=== PATIENT | male | born 1950 | race Caucasian/White ===

== ENCOUNTER → 2017-04-06 | Outpatient (CLI) | payer BC ==
[~2017-04-06] MED LIST: KETO10TA PO; LISI-461 PO; MOME50SP5; OXYC-57 PO
[2017-04-06 14:30] LABS: ALKALINE PHOSPHATASE 78 U/L (45-117); ALT/SGPT 30 U/L (12-78); AST/SGOT 24 U/L (15-37); BLOOD UREA NITROGEN 22 mg/dl (7-18); BUN/CREATININE RATIO 16.7 (10-20); CARBON DIOXIDE 29 mmol/L (21-32); CHLORIDE 106 mmol/L (98-107); CHOLESTEROL 149 mg/dl (0-200); GLUCOSE 152 mg/dl (70-99); POTASSIUM 4.4 mmol/L (3.5-5.1); SODIUM 142 mmol/L (136-145)
[2017-04-06 14:34] LABS: ALB/GLOB RATIO 1.1 (0.9-2); CHOLESTEROL/HDL RATIO 1.6; HDL CHOLESTEROL 91 mg/dl; LDL CHOLESTEROL CALCULATED 45 mg/dl; TRIGLYCERIDES 67 mg/dl (0-150); VERY LOW DENSITY LIPOPROT CALC 13 mg/dl
== END | disposition home or self-care (01) ==
LOC: C.LABPBG 10:05
PROVIDERS: ATTEND Internal Medicine Geriatric Medicine
DX: Z11.59 Encounter for screening for other viral diseases (principal); I10 Essential (primary) hypertension; E78.5 Hyperlipidemia, unspecified

== ENCOUNTER → 2017-07-22 | Outpatient (CLI) | payer BC ==
[2017-07-22 18:00] LABS: ALT/SGPT 24 U/L (12-78); BLOOD UREA NITROGEN 21 mg/dl (7-18); CALCIUM 9.6 mg/dl (8.5-10.1); CARBON DIOXIDE 30 mmol/L (21-32); CHLORIDE 105 mmol/L (98-107); CHOLESTEROL 148 mg/dl (0-200); GLUCOSE 87 mg/dl (70-99); POTASSIUM 4.3 mmol/L (3.5-5.1); SODIUM 140 mmol/L (136-145)
[2017-07-22 18:11] LABS: ALB/GLOB RATIO 0.9 (0.9-2); ALKALINE PHOSPHATASE 82 U/L (45-117); AST/SGOT 21 U/L (15-37); CHOLESTEROL/HDL RATIO 1.6; HDL CHOLESTEROL 94 mg/dl; LDL CHOLESTEROL CALCULATED 39 mg/dl; TRIGLYCERIDES 75 mg/dl (0-150); VERY LOW DENSITY LIPOPROT CALC 15 mg/dl
[2017-07-23 07:13] LABS: ESTIMATED AVERAGE GLUCOSE 126 mg/dl; HA1C FLAG Normal (Normal)
== END | disposition home or self-care (01) ==
LOC: C.LABPBG 11:33
PROVIDERS: ATTEND Internal Medicine Geriatric Medicine
DX: I10 Essential (primary) hypertension (principal); E78.5 Hyperlipidemia, unspecified; E11.9 Type 2 diabetes mellitus without complications

== ENCOUNTER → 2018-03-30 | Day surgery (SDC) | payer BC ==
[2018-03-22 13:03] VITALS: BMI 27.0
[~2018-03-30] VITALS: Ht 182.9 cm; Wt 90.9 kg
[~2018-03-30] MED LIST changes: +ATOR10TA82 PO; +CLR/5 PO; +FLUT50SP45 NAE; -KETO10TA PO; +LIDOCAINE HCL 2% 2 ML VIAL (20MG/ML) ONE; -LISI-461 PO; +LISI20TA3 PO; -MOME50SP5; +MULT-188 PO; -OXYC-57 PO; +PROPOFOL IV EMULSION 10 MG/ML 20 ML VIAL ONE; +SODIUM CHLORIDE 0.9% 500ML 500 ML IV ONE
[2018-03-30 07:55] VITALS: Ht 182.9 cm; Wt 90.9 kg
--- NOTE | 2018-03-30 08:52 | Endo History and Physical ---
History & Physical Date of Service: March 30, 2018. Chief Complaint: SCREENING Referring Physician: DR. SKYLA COELLO History of Present Illness 68 yo CM who presents for screening colonoscopy. Past Surgical History Hx Cardiac Surgery: No Hx Internal Defibrillator: No Hx Pacemaker: No Hx Abdominal Surgery: No Hx of Implantable Prosthesis: No Hx Post-Op Nausea and Vomiting: No Hx Cancer Surgery: Yes (TOTAL PROSTATECTOMY) Hx Thoracic Surgery: Yes (BRONCHOSCOPY) Hx Orthopedic: No Hx Urinary Tract Surgery: Yes (VASECTOMY) Family History None Social History Smoking Status: Never Smoker Hx Substance Use: No Hx Alcohol Use: Yes ("INFREQUENTLY") Allergies Coded Allergies: No Known Allergies (Verified , 03/30/18) Current Medications Reported Home Medications Medications Dose Route/Sig Max Daily Dose Days Date Category Allergy Nasal [place] 24 Ho (Fluticasone Propionate (Nasal)) 50 Mcg/Act Spr 1 [place] ALEXEY DAILY PRN 03/22/18 Reported Ocuvite (Multiple Vitamins W/ Minerals) 1 Tab Tab 1 Tab PO DAILY AT LUNCH 03/22/18 Reported Clarinex (Desloratadine) 5 Mg Tab 5 Mg PO DAILY PRN 03/22/18 Reported Lipitor (Atorvastatin Calcium) 10 Mg Tab 10 Mg PO DAILY AT LUNCH 03/22/18 Reported Prinivil (Lisinopril) 20 Mg Tab 20 Mg PO DAILY AT NOON 03/22/18 Reported Vital Signs Weight (Kilograms): 90.91 Height (Feet): 6 Height (Inches): 0 Date Time Temp Pulse Resp B/P (MAP) Pulse Ox O2 Delivery O2 Flow Rate FiO2 03/30/18 08:05 36.6 84 20 148/78 (101) 99 Room Air Physical Exam General Appearance: WD/WN, no apparent distress Respiratory/Chest: Auscultation: breath sounds normal Cardiovascular: Heart Auscultation: RRR Abdomen: Bowel Sounds: normal Inspection & Palpation: soft, non-distended, no tenderness, guarding & rebound Assessment and Plan Assessment: 68 yo CM who presents for screening colonoscopy. Plan: Proceed with colonoscopy.
--- NOTE | 2018-03-30 09:21 | GI REPORT ---
Patient Name: Sal Brown Procedure Date: 03/30/2018 8:38 AM Date of : 1950 Admit Type: Outpatient Age: 68 Gender: Male Attending MD: Ayden Madrid DO Procedure: Colonoscopy Providers: Ayden Madrid DO Referring MD: Pancho Vann Indications: Screening for colorectal malignant neoplasm Medicines: Monitored Anesthesia Care Complications: No immediate complications. Estimated Blood Loss: Estimated blood loss: none. Procedure: Pre-Anesthesia Assessment: - Prior to the procedure, a History and Physical was performed, and patient medications and allergies were reviewed. The patient's tolerance of previous anesthesia was also reviewed. The risks and benefits of the procedure and the sedation options and risks were discussed with the patient. All questions were answered, and informed consent was obtained. Prior Anticoagulants: The patient has taken no previous anticoagulant or antiplatelet agents. ASA Grade Assessment: II - A patient with mild systemic disease. After reviewing the risks and benefits, the patient was deemed in satisfactory condition to undergo the procedure. After I obtained informed consent, the scope was passed under direct vision. Throughout the procedure, the patient's blood pressure, pulse, and oxygen saturations were monitored continuously. The scope was introduced through the anus and advanced to the terminal ileum. The colonoscopy was performed without difficulty. The patient tolerated the procedure well. The quality of the bowel preparation was poor. The terminal ileum, ileocecal valve, appendiceal orifice, and rectum were photographed. Findings: The perianal and digital rectal examinations were normal. Copious quantities of semi-liquid stool was found in the entire colon, interfering with visualization. Lavage of the area was performed using a large amount of normal saline, resulting in incomplete clearance with continued poor visualization. Non-bleeding internal hemorrhoids were found during retroflexion. The hemorrhoids were small. Impression: - Preparation of the colon was poor. - Stool in the entire examined colon. - Non-bleeding internal hemorrhoids. - No specimens collected. Recommendation: - Resume previous diet. - Continue present medications. - Repeat colonoscopy in 6 months because the bowel preparation was poor. - Return to primary care physician as previously scheduled. Ayden Madrid DO 03/30/2018 9:21:06 AM This report has been signed electronically. Note Initiated On: 03/30/2018 8:38 AM Number of Addenda: 0 I attest to the content of the Intraoperative Record and orders documented therein, exceptions below {[id number]}
--- NOTE | 2018-03-30 09:39 | Discharge Instructions ---
Endoscopy Patient Instructions Date / Procedure(s) Performed March 30, 2018. Colonoscopy Allergy Information Coded Allergies: No Known Allergies (Verified , 03/30/18) Discharge Date / Findings March 30, 2018. Poor bowel prep Internal hemorrhoids Medication Instructions OK to resume all medications today as prescribed Reported Home Medications Medications Dose Route/Sig Max Daily Dose Days Date Category Allergy Nasal [place] 24 Ho (Fluticasone Propionate (Nasal)) 50 Mcg/Act Spr 1 [place] ALEXEY DAILY PRN 03/22/18 Reported Ocuvite (Multiple Vitamins W/ Minerals) 1 Tab Tab 1 Tab PO DAILY AT LUNCH 03/22/18 Reported Clarinex (Desloratadine) 5 Mg Tab 5 Mg PO DAILY PRN 03/22/18 Reported Lipitor (Atorvastatin Calcium) 10 Mg Tab 10 Mg PO DAILY AT LUNCH 03/22/18 Reported Prinivil (Lisinopril) 20 Mg Tab 20 Mg PO DAILY AT NOON 03/22/18 Reported Provider Instructions Activity Restrictions - No exercising or heavy lifting for 24 hours. - Do not drink alcohol the day of the procedure. - Do not drive a car or operate machinery until the day after the procedure. - Do not make any important decisions or sign important papers in 24 hours after the procedure. Following Day: - Return to full activity which may include returning to work/school. Diet Start your diet with liquids and light foods (jello, soup, juice, toast). Then eat your usual diet if not nauseated. Treatment For Common After Affects For mild abdominal pain, bloating, or excessive gas: - Rest - Eat lightly - Lie on right side Follow-Up Information Follow-up with DR. SKYLA COELLO as scheduled Anesthesia Information What You Should Know You have had a procedure that required some medicine to reduce anxiety and discomfort. This treatment is called moderate sedation. After receiving the treatment, you may be sleepy, but you will be able to breathe on your own. The effects of the treatment may last for several hours. Follow these instructions along with Activity/Diet recommendations noted above: * Do NOT do anything where dizziness or clumsiness would be dangerous. * Rest quietly at home today, then you can be up and about tomorrow. * Have a responsible person stay with you the rest of today. * You may have had an I.V. today. If so, you may take the dressing off later today. Recommendations Call your doctor if: * Trouble breathing * Continuous vomiting for more than 24 hours * Temperature above 101 degrees * Severe abdominal pain or bloating * Pain not relieved by pain medicine ordered * There is increased drainage or redness from any incision * A large amount of rectal bleeding greater than 2-3 tablespoons. (If you had a polyp/s removed or have hemorrhoids, a small amount of blood - from the rectum is to be expected.) * You have any unanswered questions or concerns. IN THE EVENT OF A SERIOUS EMERGENCY, GO TO THE NEAREST EMERGENCY ROOM Your discharge instructions were prepared by provider Ayden Madrid. Patient Instructions Signature Page Sal Brown Patient (or Guardian) Signature/Date: I have read and understand the instructions given to me by my caregivers. Caregiver/RN/Doctor Signature/Date: The above-named patient and/or guardian has received patient instructions on this date. + Original Patient Signature Page (only) stays with chart. Please make copy for patient.
--- NOTE | 2018-03-30 09:41 | Anesthesiology Progress Note ---
Anesthesia Post Op Note Date & Time March 30, 2018 at 09:41 Vital Signs Pain Intensity: 0 Vital Signs Past 12 Hours Date Time Temp Pulse Resp B/P (MAP) Pulse Ox O2 Delivery O2 Flow Rate FiO2 03/30/18 09:35 81 20 136/74 (94) 98 Room Air 03/30/18 09:20 36.7 83 16 112/69 (83) 98 Room Air 03/30/18 08:05 36.6 84 20 148/78 (101) 99 Room Air Notes Mental Status: alert / awake / arousable, participated in evaluation Pt Amnestic to Procedure: Yes Nausea / Vomiting: adequately controlled Pain: adequately controlled Airway Patency, RR, SpO2: stable & adequate BP & HR: stable & adequate Hydration State: stable & adequate Anesthetic Complications: no major complications apparent
[2018-03-30 09:51] VITALS: BP 137/76; PULSE 82; O2SAT 97
== END | disposition home or self-care (01) ==
LOC: C.GI 07:14
PROVIDERS: ATTEND Internal Medicine
DX: Z12.11 Encounter for screening for malignant neoplasm of colon (principal); K64.8 Other hemorrhoids; I10 Essential (primary) hypertension; Z85.46 Personal history of malignant neoplasm of prostate; Z90.79 Acquired absence of other genital organ(s)